=== PATIENT | female | born 1940 | race African-American/Black ===

== ENCOUNTER 2019-10-01 14:54 | Inpatient (IN) | payer MEDICARE, MEDICAID ==
[~2019-10-01] VITALS: Ht 162.6 cm; Wt 100.9 kg
[2019-10-01] MEDS ORDERED: ACETAMINOPHEN 325MG TABLET PO STA (15:41)
[2019-10-01] MEDS ORDERED: VANCOMYCIN 1 G PREMIX 200 ML IV ONE (15:45)
[2019-10-01] MEDS ORDERED: SODIUM CHLORIDE 0.9% 1000ML BAG (SEPSIS BOLUS) IV ONE (15:45)
[2019-10-01] MEDS ORDERED: PIPERACILLIN/TAZ 3.375G PREMIX 50 ML IV ONE (15:45)
[2019-10-01 16:35] LABS: CHLORIDE 106 mEq/L (98-107)
[2019-10-01 16:38] LABS: PROTHROMBIN TIME 11.3 sec (9.6-11.0)
[2019-10-01 16:39] LABS: ETHANOL BLOOD < 10 mg/dL
[2019-10-01 17:02] LABS: CLARITY URINE CLOUDY (CLEAR); COLOR URINE YELLOW (YELLOW); KETONES URINE NEGATIVE (NEGATIVE); LEUKOCYTE ESTERASE URINE 2+ (NEGATIVE); NITRITE URINE NEGATIVE (NEGATIVE); OCCULT BLOOD URINE 3+ (NEGATIVE); PH URINE 7.5 (4.5-8.0); PROTEIN URINE 2+ (NEGATIVE); SPECIFIC GRAVITY URINE 1.013 (1.005-1.030)
[2019-10-01 17:14] LABS: *AMPHETAMINES SCREEN URINE NEGATIVE (NEGATIVE)
[2019-10-01 17:15] LABS: *BARBITURATES SCREEN URINE NEGATIVE (NEGATIVE); *BENZODIAZEPINES SCREEN URINE NEGATIVE (NEGATIVE); *COCAINE SCREEN URINE NEGATIVE (NEGATIVE); METHADONE URINE SCREEN NEGATIVE (NEGATIVE); OPIATES URINE SCREEN NEGATIVE (NEGATIVE); PHENCYCLIDINE URINE SCREEN NEGATIVE (NEGATIVE)
[2019-10-01 17:16] LABS: CANNABINOID URINE SCREEN NEGATIVE (NEGATIVE)
[2019-10-01 17:44] LABS: HEMATOCRIT. 31.4 % (36.0-48.0); HEMOGLOBIN. 10.8 g/dL (12.0-16.0); MEAN CORPUSCULAR HEMOGLOBIN 24.2 pg (28.0-32.0); MEAN CORPUSCULAR VOLUME 70.2 fL (81.0-99.0); MEAN PLATELET VOLUME 8.6 fl (7.4-10.4); PLATELET 202 x1000/uL (130-400); RED BLOOD CELL COUNT 4.47 mill/uL (4.2-5.4); RED CELL DISTRIBUTION WIDTH 18.5 % (11.6-14.6)
[2019-10-01 18:20] LABS: PLATELET ESTIMATE NORMAL
[2019-10-01] MEDS ORDERED: ACETAMINOPHEN 650MG SUPP PR PRN ×2 (22:15)
[2019-10-01] MEDS ORDERED: GUAIFENESIN 200MG/10ML SUGAR FREE UDC PO PRN (22:15)
[2019-10-01] MEDS ORDERED: CEFTRIAXONE 1 G PREMIX 50 ML IV NR (22:30)
[2019-10-01] MEDS ORDERED: AZITHROMYCIN 500 MG in DEXT 5% WATER 250 ML IV NR (23:30)
[2019-10-02] MEDS: ACETAMINOPHEN 650MG/20.3ML UDC GT PRN (03:52)
[2019-10-02 06:13] LABS: CHLORIDE 107 mEq/L (98-107)
[2019-10-02 06:16] LABS: HEMOGLOBIN. 10.3 g/dL (12.0-16.0); MEAN CORPUSCULAR HEMOGLOBIN 24.5 pg (28.0-32.0); MEAN CORPUSCULAR VOLUME 71.3 fL (81.0-99.0); MEAN PLATELET VOLUME 8.6 fl (7.4-10.4); PLATELET 184 x1000/uL (130-400); RED BLOOD CELL COUNT 4.21 mill/uL (4.2-5.4); RED CELL DISTRIBUTION WIDTH 18.5 % (11.6-14.6)
[2019-10-02 06:20] LABS: HDL CHOLESTEROL 53 mg/dL (40-59)
[2019-10-02 06:23] LABS: LDL CHOLESTEROL 64 mg/dL (5-100)
[2019-10-02 07:16] LABS: PLATELET ESTIMATE NORMAL
[2019-10-02 08:30] VITALS: BP 171/90
[2019-10-02] MEDS ORDERED: VANCOMYCIN 1,000 MG in DEXT 5% WATER 250 ML IV SCH (10:00)
[2019-10-02] MEDS: ENOXAPARIN 30MG/0.3ML SYR SUBCUT SCH (10:33)
[2019-10-02 10:57] LABS: BG BASE EXCESS 3.7 mmol/L (-2.0-2.0); BG CARBOXYHEMOGLOBIN 0.3 % (0.5-1.5); BG DEOXYHEMOGLOBIN 4.2 % (0.0-5.0); BG FRACTION INSPIRED OXYGEN 21; BG HCO3 ACT 28.2 mmol/L (22.0-26.0); BG METHEMOGLOBIN 0.3 % (0.0-1.5); BG OXYGEN SATURATION 95.8 % (92.0-98.5); BG OXYHEMOGLOBIN 95.2 % (94.0-97.0); BG PCO2 42.6 mmHg (35.0-45.0); BG PH 7.439 (7.350-7.450); BG PO2 78.9 mmHg (75.0-100.0); BG SAMPLE SITE RIGHT RADIAL; BG TOTAL HEMOGLOBIN 10.5 g/dL (12.0-18.0); BG VENT MODE ROOM AIR
[2019-10-02 12:00] VITALS: BP 178/86
[2019-10-02] MEDS ORDERED: BENZONATATE 100MG CAPSULE PO PRN ×2 (13:15→16:30)
[2019-10-02] MEDS ORDERED: GUAIFENESIN-DM 200MG-20MG/10ML UDC PO PRN (13:30)
[2019-10-02] MEDS: GUAIFENESIN-DM 200MG-20MG/10ML UDC PO PRN (14:03)
[2019-10-02] MEDS ORDERED: ATOR20TA65 PO (14:33)
[2019-10-02] MEDS ORDERED: LOSA100T3 PO (14:33)
[2019-10-02] MEDS ORDERED: HYDR-4135 PO (14:33)
[2019-10-02] MEDS ORDERED: MINO2.5T2 PO (14:33)
[2019-10-02] MEDS: SODIUM CHLORIDE 0.9% INJ 3ML FLUSH IVF SCH ×3 (14:54→21:39)
[2019-10-02 16:00] VITALS: BP 208/84
[2019-10-02] MEDS ORDERED: POTASSIUM CHLORIDE 20MEQ TABLET SR PO NR (16:00)
[2019-10-02 20:00] VITALS: BP 181/83
[2019-10-02] MEDS: HYDRALAZINE HCL 50MG TABLET PO SCH (21:16)
[2019-10-02] MEDS: GUAIFENESIN 600MG ER TABLET PO SCH (21:17)
[2019-10-02] MEDS: ATORVASTATIN CALCIUM 20MG TABLET PO SCH (21:17)
[2019-10-02] MEDS: MINOXIDIL 2.5MG TABLET PO SCH (21:22)
[2019-10-02] MEDS ORDERED: AZITHROMYCIN 500 MG in DEXT 5% WATER 250 ML IV SCH (22:00)
[2019-10-02] MEDS: CEFTRIAXONE 1 G PREMIX 50 ML IV SCH (23:06)
[2019-10-02 23:41] VITALS: BP 174/72
[2019-10-03 04:00] VITALS: BP 180/81
[2019-10-03] MEDS: SODIUM CHLORIDE 0.9% INJ 3ML FLUSH IVF SCH ×3 (05:01→21:38)
[2019-10-03] MEDS: HYDRALAZINE HCL 50MG TABLET PO SCH ×3 (05:01→21:39)
[2019-10-03 06:00] VITALS: BP 170/92
[2019-10-03] MEDS ORDERED: VANCOMYCIN HCL 750 MG in DEXT 5% WATER 250 ML IV SCH (06:00)
[2019-10-03 08:00] VITALS: BP 170/63
[2019-10-03] MEDS ORDERED: ENOXAPARIN 40MG/0.4ML SYR SUBCUT SCH (09:00)
[2019-10-03] MEDS: HYDROXYCHLOROQUINE SULFATE 200MG TABLET PO SCH ×2 (09:01→16:28)
[2019-10-03] MEDS: ZINC SULFATE 220 MG ( 50 ) CAPSULE PO SCH (09:01)
[2019-10-03] MEDS: ASCORBIC ACID 500 MG TABLET PO SCH ×2 (09:01→20:53)
[2019-10-03] MEDS: LOSARTAN POTASSIUM 100 MG TABLET PO SCH (09:01)
[2019-10-03] MEDS: ENOXAPARIN 30MG/0.3ML SYR SUBCUT SCH (09:01)
[2019-10-03] MEDS: MINOXIDIL 2.5MG TABLET PO SCH ×2 (09:02→20:54)
[2019-10-03] MEDS: GUAIFENESIN 600MG ER TABLET PO SCH ×2 (09:02→20:53)
[2019-10-03] MEDS: GUAIFENESIN-DM 200MG-20MG/10ML UDC PO PRN (09:10)
[2019-10-03 12:00] VITALS: BP 183/76
[2019-10-03] MEDS ORDERED: CLONIDINE 0.1MG TABLET PO PRN (12:45)
[2019-10-03] MEDS: ACETAMINOPHEN 650MG/20.3ML UDC GT PRN (13:42)
[2019-10-03 16:00] VITALS: BP 165/83
[2019-10-03] MEDS: GLYBURIDE 5MG TABLET PO SCH (16:28)
[2019-10-03] MEDS ORDERED: GLYBURIDE 5MG TABLET PO SCH (16:40)
[2019-10-03 20:00] VITALS: BP 158/72
[2019-10-03] MEDS ORDERED: CEFTRIAXONE 1 G PREMIX 50 ML IV SCH (20:00)
[2019-10-03] MEDS: ATORVASTATIN CALCIUM 20MG TABLET PO SCH (20:53)
[2019-10-03] MEDS ORDERED: AZITHROMYCIN 500 MG in DEXT 5% WATER 250 ML IV SCH (21:00)
[2019-10-03] MEDS ORDERED: POTASSIUM CHLORIDE 20MEQ TABLET SR PO NR (22:30)
[2019-10-04] VITALS (8 sets, daily range): BP systolic 114–175; BP diastolic 63–80
[2019-10-04] MEDS: CEFTRIAXONE 1 G PREMIX 50 ML IV SCH (00:57)
[2019-10-04] MEDS: SODIUM CHLORIDE 0.9% INJ 3ML FLUSH IVF SCH ×3 (05:11→21:44)
[2019-10-04] MEDS: GLYBURIDE 5MG TABLET PO SCH ×2 (05:40→17:13)
[2019-10-04] MEDS: HYDRALAZINE HCL 50MG TABLET PO SCH ×3 (05:41→23:40)
[2019-10-04 06:18] LABS: BASOPHILS % 0.7 % (0.0-2.0); EOSINOPHILS % 0.2 % (0.0-5.0); HEMATOCRIT. 33.2 % (36.0-48.0); HEMOGLOBIN. 11.3 g/dL (12.0-16.0); LYMPHOCYTES % 14.1 % (20.0-50.0); MEAN CORPUSCULAR HEMOGLOBIN 24.4 pg (28.0-32.0); MEAN CORPUSCULAR VOLUME 71.4 fL (81.0-99.0); MEAN PLATELET VOLUME 8.7 fl (7.4-10.4); MONOCYTES % 14.6 % (2.0-8.0); NEUTROPHILS % 70.4 % (40.0-76.0); PLATELET 228 x1000/uL (130-400); RED BLOOD CELL COUNT 4.64 mill/uL (4.2-5.4)
[2019-10-04 07:48] LABS: CHLORIDE 107 mEq/L (98-107)
[2019-10-04] MEDS: ZINC SULFATE 220 MG ( 50 ) CAPSULE PO SCH (09:22)
[2019-10-04] MEDS: ASCORBIC ACID 500 MG TABLET PO SCH ×2 (09:22→20:47)
[2019-10-04] MEDS: MINOXIDIL 2.5MG TABLET PO SCH ×2 (09:22→21:44)
[2019-10-04] MEDS: LOSARTAN POTASSIUM 100 MG TABLET PO SCH (09:22)
[2019-10-04] MEDS: ENOXAPARIN 40MG/0.4ML SYR SUBCUT SCH (09:22)
[2019-10-04] MEDS: HYDROXYCHLOROQUINE SULFATE 200MG TABLET PO SCH ×2 (09:22→17:13)
[2019-10-04] MEDS: GUAIFENESIN 600MG ER TABLET PO SCH ×2 (09:24→20:47)
[2019-10-04] MEDS ORDERED: POTASSIUM CHLORIDE 20MEQ TABLET SR PO NR (14:00)
[2019-10-04] MEDS: ACETAMINOPHEN 650MG/20.3ML UDC GT PRN (17:34)
[2019-10-04] MEDS: ATORVASTATIN CALCIUM 20MG TABLET PO SCH (20:47)
[2019-10-04] MEDS ORDERED: AZITHROMYCIN 500 MG TABLET PO SCH (21:00)
[2019-10-05] MEDS: ACETAMINOPHEN 650MG/20.3ML UDC GT PRN (00:02)
[2019-10-05] MEDS: CEFTRIAXONE 2 G in DEXTROSE 5% WATER 50 ML IV SCH (01:30)
[2019-10-05 04:00] VITALS: BP 146/70
[2019-10-05] MEDS: SODIUM CHLORIDE 0.9% INJ 3ML FLUSH IVF SCH ×3 (07:13→22:16)
[2019-10-05] MEDS: HYDRALAZINE HCL 50MG TABLET PO SCH ×3 (07:13→21:55)
[2019-10-05] MEDS: ACETAMINOPHEN 650MG/20.3ML UDC PO PRN ×2 (07:27→22:02)
[2019-10-05] MEDS: GLYBURIDE 5MG TABLET PO SCH ×2 (07:34→17:55)
[2019-10-05 08:00] VITALS: BP 142/63
[2019-10-05] MEDS: MINOXIDIL 2.5MG TABLET PO SCH ×2 (10:03→21:55)
[2019-10-05] MEDS: ASCORBIC ACID 500 MG TABLET PO SCH ×2 (10:03→21:54)
[2019-10-05] MEDS: HYDROXYCHLOROQUINE SULFATE 200MG TABLET PO SCH ×2 (10:03→20:01)
[2019-10-05] MEDS: ZINC SULFATE 220 MG ( 50 ) CAPSULE PO SCH (10:03)
[2019-10-05] MEDS: LOSARTAN POTASSIUM 100 MG TABLET PO SCH (10:03)
[2019-10-05] MEDS: ENOXAPARIN 40MG/0.4ML SYR SUBCUT SCH (10:10)
[2019-10-05] MEDS: GUAIFENESIN-DM 200MG-20MG/10ML UDC PO PRN (10:10)
[2019-10-05] MEDS: GUAIFENESIN 600MG ER TABLET PO SCH ×2 (10:14→21:54)
[2019-10-05 12:00] VITALS: BP 155/70
[2019-10-05 12:16] LABS: BG BASE EXCESS 0.2 mmol/L (-2.0-2.0); BG CARBOXYHEMOGLOBIN 0.1 % (0.5-1.5); BG DEOXYHEMOGLOBIN 6.9 % (0.0-5.0); BG FRACTION INSPIRED OXYGEN 21; BG HCO3 ACT 25.1 mmol/L (22.0-26.0); BG METHEMOGLOBIN 0.3 % (0.0-1.5); BG OXYGEN SATURATION 93.1 % (92.0-98.5); BG OXYHEMOGLOBIN 92.7 % (94.0-97.0); BG PCO2 41.6 mmHg (35.0-45.0); BG PH 7.399 (7.350-7.450); BG PO2 69.9 mmHg (75.0-100.0); BG SAMPLE SITE RIGHT RADIAL; BG TOTAL HEMOGLOBIN 13.2 g/dL (12.0-18.0); BG VENT MODE ROOM AIR
[2019-10-05] MEDS ORDERED: POTASSIUM CHLORIDE 20MEQ TABLET SR PO SCH (14:00)
[2019-10-05 16:00] VITALS: BP 154/75
[2019-10-05] MEDS ORDERED: INSULIN GLARGINE UD 100 UNITS/ML SYR SUBCUT NR (17:00)
[2019-10-05 20:00] VITALS: BP 149/77
[2019-10-05] MEDS: FAMOTIDINE 20MG TABLET PO SCH (21:54)
[2019-10-05] MEDS: ATORVASTATIN CALCIUM 20MG TABLET PO SCH (21:54)
[2019-10-06] VITALS: BP 149/81
[2019-10-06] MEDS: CEFTRIAXONE 2 G in DEXTROSE 5% WATER 50 ML IV SCH (00:40)
[2019-10-06 04:00] VITALS: BP 144/72
[2019-10-06] MEDS: HYDRALAZINE HCL 50MG TABLET PO SCH ×3 (05:46→21:34)
[2019-10-06] MEDS: SODIUM CHLORIDE 0.9% INJ 3ML FLUSH IVF SCH ×3 (05:46→21:37)
[2019-10-06] MEDS: GLYBURIDE 5MG TABLET PO SCH ×2 (06:24→17:10)
[2019-10-06 08:00] VITALS: BP 149/68
[2019-10-06] MEDS: ENOXAPARIN 40MG/0.4ML SYR SUBCUT SCH (08:56)
[2019-10-06] MEDS: ZINC SULFATE 220 MG ( 50 ) CAPSULE PO SCH (08:56)
[2019-10-06] MEDS: LOSARTAN POTASSIUM 100 MG TABLET PO SCH (08:56)
[2019-10-06] MEDS: HYDROXYCHLOROQUINE SULFATE 200MG TABLET PO SCH ×2 (08:56→17:10)
[2019-10-06] MEDS: ASCORBIC ACID 500 MG TABLET PO SCH ×2 (08:56→21:34)
[2019-10-06] MEDS: MINOXIDIL 2.5MG TABLET PO SCH ×2 (08:56→21:34)
[2019-10-06] MEDS: GUAIFENESIN 600MG ER TABLET PO SCH ×2 (08:56→21:37)
[2019-10-06 09:40] LABS: BASOPHILS % 0.6 % (0.0-2.0); CHLORIDE 106 mEq/L (98-107); EOSINOPHILS % 0.1 % (0.0-5.0); HEMATOCRIT. 31.7 % (36.0-48.0); HEMOGLOBIN. 10.8 g/dL (12.0-16.0); MEAN CORPUSCULAR HEMOGLOBIN 24.5 pg (28.0-32.0); MEAN CORPUSCULAR VOLUME 71.8 fL (81.0-99.0); MONOCYTES % 9.8 % (2.0-8.0); NEUTROPHILS % 69.5 % (40.0-76.0); PLATELET 250 x1000/uL (130-400); RED BLOOD CELL COUNT 4.42 mill/uL (4.2-5.4); RED CELL DISTRIBUTION WIDTH 18.4 % (11.6-14.6)
[2019-10-06] MEDS ORDERED: INSULIN GLARGINE UD 100 UNITS/ML SYR SUBCUT SCH (10:00)
[2019-10-06 12:00] VITALS: BP 161/67
[2019-10-06 16:00] VITALS: BP 148/63
[2019-10-06 20:00] VITALS: BP 174/52
[2019-10-06] MEDS: GUAIFENESIN-DM 200MG-20MG/10ML UDC PO PRN (21:33)
[2019-10-06] MEDS: FAMOTIDINE 20MG TABLET PO SCH (21:33)
[2019-10-06] MEDS: ATORVASTATIN CALCIUM 20MG TABLET PO SCH (21:34)
[2019-10-07] MEDS: INSULIN GLARGINE UD 100 UNITS/ML SYR SUBCUT SCH ×3 (00:05→22:18)
[2019-10-07] MEDS: ACETAMINOPHEN 650MG/20.3ML UDC PO PRN ×2 (00:13→22:17)
[2019-10-07] MEDS: CEFTRIAXONE 2 G in DEXTROSE 5% WATER 50 ML IV SCH (00:14)
[2019-10-07 00:26] VITALS: BP 147/63
[2019-10-07 04:00] VITALS: BP 154/77
[2019-10-07] MEDS: HYDRALAZINE HCL 50MG TABLET PO SCH ×3 (06:50→22:16)
[2019-10-07] MEDS: GLYBURIDE 5MG TABLET PO SCH ×2 (06:50→17:59)
[2019-10-07] MEDS: SODIUM CHLORIDE 0.9% INJ 3ML FLUSH IVF SCH ×2 (06:51→14:00)
[2019-10-07 08:00] VITALS: BP 151/67
[2019-10-07] MEDS: HYDROXYCHLOROQUINE SULFATE 200MG TABLET PO SCH ×2 (09:52→17:59)
[2019-10-07] MEDS: ZINC SULFATE 220 MG ( 50 ) CAPSULE PO SCH (09:52)
[2019-10-07] MEDS: LOSARTAN POTASSIUM 100 MG TABLET PO SCH (09:52)
[2019-10-07] MEDS: ENOXAPARIN 40MG/0.4ML SYR SUBCUT SCH (09:53)
[2019-10-07] MEDS: MINOXIDIL 2.5MG TABLET PO SCH ×2 (09:53→22:16)
[2019-10-07] MEDS: ASCORBIC ACID 500 MG TABLET PO SCH ×2 (09:53→22:15)
[2019-10-07] MEDS: GUAIFENESIN 600MG ER TABLET PO SCH ×2 (10:22→22:15)
[2019-10-07 12:00] VITALS: BP 162/77
[2019-10-07] MEDS ORDERED: DEXTROSE 50% WATER 50ML SYRINGE IV PRN (13:15)
[2019-10-07] MEDS: INSULIN LISPRO 100 UNITS/ML SUBCUT SCH ×3 (13:39→22:18)
[2019-10-07 16:00] VITALS: BP 129/53
[2019-10-07] MEDS: BLOOD SUGAR DIAGNOSTIC STRIP TEST SCH ×2 (16:40→21:00)
[2019-10-07 20:00] VITALS: BP_SYST 103; BP_SYST 134; BP_DIAS 49; BP_DIAS 63
[2019-10-07] MEDS: FAMOTIDINE 20MG TABLET PO SCH (22:15)
[2019-10-07] MEDS: ATORVASTATIN CALCIUM 20MG TABLET PO SCH (22:16)
[2019-10-08] VITALS (7 sets, daily range): BP systolic 130–151; BP diastolic 54–76
[2019-10-08] MEDS: CEFTRIAXONE 2 G in DEXTROSE 5% WATER 50 ML IV SCH (01:37)
[2019-10-08] MEDS: GLYBURIDE 5MG TABLET PO SCH ×2 (06:57→18:01)
[2019-10-08] MEDS: HYDRALAZINE HCL 50MG TABLET PO SCH ×3 (06:57→21:22)
[2019-10-08] MEDS: BLOOD SUGAR DIAGNOSTIC STRIP TEST SCH ×4 (07:04→21:22)
[2019-10-08] MEDS: INSULIN LISPRO 100 UNITS/ML SUBCUT SCH ×4 (07:08→21:20)
[2019-10-08] MEDS: SODIUM CHLORIDE 0.9% INJ 3ML FLUSH IVF SCH ×3 (07:13→21:20)
[2019-10-08] MEDS: GUAIFENESIN 600MG ER TABLET PO SCH ×2 (08:22→21:21)
[2019-10-08] MEDS: ZINC SULFATE 220 MG ( 50 ) CAPSULE PO SCH (08:22)
[2019-10-08] MEDS: ENOXAPARIN 40MG/0.4ML SYR SUBCUT SCH (08:22)
[2019-10-08] MEDS: MINOXIDIL 2.5MG TABLET PO SCH ×2 (08:22→21:21)
[2019-10-08] MEDS: LOSARTAN POTASSIUM 100 MG TABLET PO SCH (08:22)
[2019-10-08] MEDS: ASCORBIC ACID 500 MG TABLET PO SCH ×2 (08:22→21:20)
[2019-10-08] MEDS: INSULIN GLARGINE UD 100 UNITS/ML SYR SUBCUT SCH ×2 (10:40→21:20)
[2019-10-08] MEDS ORDERED: LIDOCAINE HCL 1% 20ML VIAL (Pyxis) INJ ONE (14:06)
[2019-10-08] MEDS ORDERED: SODIUM BICARBONATE 4% (2.4MEQ) 5ML VIAL IV ONE (14:06)
[2019-10-08] MEDS: ATORVASTATIN CALCIUM 20MG TABLET PO SCH (21:21)
[2019-10-08] MEDS: FAMOTIDINE 20MG TABLET PO SCH (21:24)
[2019-10-09] VITALS: BP 130/90
[2019-10-09 04:00] VITALS: BP 150/71
[2019-10-09] MEDS: SODIUM CHLORIDE 0.9% INJ 3ML FLUSH IVF SCH ×3 (05:25→21:26)
[2019-10-09] MEDS: HYDRALAZINE HCL 50MG TABLET PO SCH ×3 (05:25→21:24)
[2019-10-09] MEDS: GLYBURIDE 5MG TABLET PO SCH ×2 (06:16→16:40)
[2019-10-09] MEDS: INSULIN LISPRO 100 UNITS/ML SUBCUT SCH ×3 (06:17→21:30)
[2019-10-09] MEDS: BLOOD SUGAR DIAGNOSTIC STRIP TEST SCH ×3 (06:18→21:14)
[2019-10-09 08:00] VITALS: BP 149/55
[2019-10-09] MEDS: GUAIFENESIN 600MG ER TABLET PO SCH ×2 (09:00→21:25)
[2019-10-09] MEDS: ASCORBIC ACID 500 MG TABLET PO SCH ×2 (09:00→21:25)
[2019-10-09] MEDS: ENOXAPARIN 40MG/0.4ML SYR SUBCUT SCH (10:20)
[2019-10-09] MEDS: LOSARTAN POTASSIUM 100 MG TABLET PO SCH (10:21)
[2019-10-09] MEDS: ZINC SULFATE 220 MG ( 50 ) CAPSULE PO SCH (10:21)
[2019-10-09] MEDS: MINOXIDIL 2.5MG TABLET PO SCH ×2 (10:21→21:25)
[2019-10-09] MEDS: INSULIN GLARGINE UD 100 UNITS/ML SYR SUBCUT SCH ×2 (10:25→21:29)
[2019-10-09] MEDS ORDERED: LEVOFLOXACIN 500MG TABLET PO SCH (11:00)
[2019-10-09 12:23] VITALS: BP 155/72
[2019-10-09 20:00] VITALS: BP 155/71
[2019-10-09] MEDS: FAMOTIDINE 20MG TABLET PO SCH (21:25)
[2019-10-09] MEDS: ATORVASTATIN CALCIUM 20MG TABLET PO SCH (21:25)
[2019-10-10] VITALS: BP 161/77
[2019-10-10 04:00] VITALS: BP 104/59
[2019-10-10] MEDS: SODIUM CHLORIDE 0.9% INJ 3ML FLUSH IVF SCH ×3 (05:29→21:35)
[2019-10-10] MEDS: HYDRALAZINE HCL 50MG TABLET PO SCH ×3 (06:00→22:43)
[2019-10-10] MEDS: GLYBURIDE 5MG TABLET PO SCH ×2 (06:43→17:26)
[2019-10-10] MEDS: BLOOD SUGAR DIAGNOSTIC STRIP TEST SCH ×4 (07:08→21:35)
[2019-10-10] MEDS: INSULIN LISPRO 100 UNITS/ML SUBCUT SCH ×4 (07:12→21:43)
[2019-10-10 08:00] VITALS: BP 110/54
[2019-10-10] MEDS: GUAIFENESIN 600MG ER TABLET PO SCH ×2 (08:50→20:22)
[2019-10-10] MEDS: MINOXIDIL 2.5MG TABLET PO SCH ×2 (08:50→21:45)
[2019-10-10] MEDS: LOSARTAN POTASSIUM 100 MG TABLET PO SCH (08:50)
[2019-10-10] MEDS: ASCORBIC ACID 500 MG TABLET PO SCH ×2 (08:50→20:22)
[2019-10-10] MEDS: ZINC SULFATE 220 MG ( 50 ) CAPSULE PO SCH (08:50)
[2019-10-10] MEDS: ACETAMINOPHEN 650MG/20.3ML UDC PO PRN (08:51)
[2019-10-10] MEDS ORDERED: LEVOFLOXACIN 250MG TABLET PO SCH (11:00)
[2019-10-10] MEDS: INSULIN GLARGINE UD 100 UNITS/ML SYR SUBCUT SCH ×2 (11:21→21:43)
[2019-10-10 12:00] VITALS: BP 120/66
[2019-10-10] MEDS: ENOXAPARIN 40MG/0.4ML SYR SUBCUT SCH (13:00)
[2019-10-10] MEDS ORDERED: CEFTRIAXONE 2 G PREMIX 50 ML IV SCH (13:00)
[2019-10-10 16:00] VITALS: BP 115/72
[2019-10-10 20:00] VITALS: BP 134/71
[2019-10-10] MEDS: ATORVASTATIN CALCIUM 20MG TABLET PO SCH (20:22)
[2019-10-10] MEDS: FAMOTIDINE 20MG TABLET PO SCH (20:22)
[2019-10-10] MEDS: CEFTRIAXONE 2 G in DEXTROSE 5% WATER 50 ML IV SCH (21:40)
[2019-10-10 23:22] LABS: HEMOGLOBIN. 11.6 g/dL (12.0-16.0); MEAN CORPUSCULAR HEMOGLOBIN 24.4 pg (28.0-32.0); MEAN CORPUSCULAR VOLUME 71.9 fL (81.0-99.0); MEAN PLATELET VOLUME 9.2 fl (7.4-10.4); PLATELET 329 x1000/uL (130-400); RED BLOOD CELL COUNT 4.73 mill/uL (4.2-5.4); RED CELL DISTRIBUTION WIDTH 18.3 % (11.6-14.6)
[2019-10-11] VITALS: BP 123/59
[2019-10-11 00:15] LABS: PLATELET ESTIMATE NORMAL
[2019-10-11] MEDS: ACETAMINOPHEN 650MG/20.3ML UDC PO PRN (01:29)
[2019-10-11 04:00] VITALS: BP 104/48
[2019-10-11] MEDS: HYDRALAZINE HCL 50MG TABLET PO SCH ×3 (06:00→22:07)
[2019-10-11] MEDS: SODIUM CHLORIDE 0.9% INJ 3ML FLUSH IVF SCH ×3 (06:11→21:22)
[2019-10-11] MEDS: BLOOD SUGAR DIAGNOSTIC STRIP TEST SCH ×4 (06:40→21:50)
[2019-10-11] MEDS: GLYBURIDE 5MG TABLET PO SCH ×2 (06:48→16:19)
[2019-10-11] MEDS: INSULIN LISPRO 100 UNITS/ML SUBCUT SCH ×4 (06:49→21:51)
[2019-10-11 08:00] VITALS: BP 114/57
[2019-10-11] MEDS: ENOXAPARIN 40MG/0.4ML SYR SUBCUT SCH (11:13)
[2019-10-11] MEDS: ZINC SULFATE 220 MG ( 50 ) CAPSULE PO SCH (11:14)
[2019-10-11] MEDS: GUAIFENESIN 600MG ER TABLET PO SCH ×2 (11:14→20:56)
[2019-10-11] MEDS: MINOXIDIL 2.5MG TABLET PO SCH ×2 (11:14→21:21)
[2019-10-11] MEDS: LOSARTAN POTASSIUM 100 MG TABLET PO SCH (11:14)
[2019-10-11] MEDS: ASCORBIC ACID 500 MG TABLET PO SCH ×2 (11:14→20:56)
[2019-10-11] MEDS: INSULIN GLARGINE UD 100 UNITS/ML SYR SUBCUT SCH ×2 (11:20→22:09)
[2019-10-11 12:00] VITALS: BP 135/69
[2019-10-11 12:41] LABS: BASOPHILS % 0.6 % (0.0-2.0); EOSINOPHILS % 0.7 % (0.0-5.0); HEMATOCRIT. 32.8 % (36.0-48.0); HEMOGLOBIN. 11.1 g/dL (12.0-16.0); LYMPHOCYTES % 14.2 % (20.0-50.0); MEAN CORPUSCULAR HEMOGLOBIN 24.1 pg (28.0-32.0); MEAN CORPUSCULAR VOLUME 71.3 fL (81.0-99.0); MEAN PLATELET VOLUME 9.6 fl (7.4-10.4); MONOCYTES % 8.4 % (2.0-8.0); NEUTROPHILS % 76.1 % (40.0-76.0); PLATELET 282 x1000/uL (130-400); RED BLOOD CELL COUNT 4.61 mill/uL (4.2-5.4); RED CELL DISTRIBUTION WIDTH 18.6 % (11.6-14.6)
[2019-10-11 13:06] LABS: CHLORIDE 105 mEq/L (98-107)
[2019-10-11 16:00] VITALS: BP 118/68
[2019-10-11] MEDS: SODIUM CHLORIDE 0.45% 1,000 ML IV SCH (16:19)
[2019-10-11] MEDS: CEFTRIAXONE 2 G in DEXTROSE 5% WATER 50 ML IV SCH (16:19)
[2019-10-11 20:00] VITALS: BP 120/73
[2019-10-11] MEDS: FAMOTIDINE 20MG TABLET PO SCH (20:56)
[2019-10-11] MEDS: ATORVASTATIN CALCIUM 20MG TABLET PO SCH (20:56)
[2019-10-12] VITALS: BP 125/66
[2019-10-12 04:00] VITALS: BP 117/60
[2019-10-12] MEDS: SODIUM CHLORIDE 0.9% INJ 3ML FLUSH IVF SCH ×3 (05:19→22:49)
[2019-10-12] MEDS: HYDRALAZINE HCL 50MG TABLET PO SCH ×3 (05:46→22:59)
[2019-10-12] MEDS: GLYBURIDE 5MG TABLET PO SCH ×2 (05:46→16:14)
[2019-10-12] MEDS: BLOOD SUGAR DIAGNOSTIC STRIP TEST SCH ×4 (06:02→21:22)
[2019-10-12] MEDS: INSULIN LISPRO 100 UNITS/ML SUBCUT SCH ×4 (06:13→22:50)
[2019-10-12 08:00] VITALS: BP 108/60
[2019-10-12] MEDS: MINOXIDIL 2.5MG TABLET PO SCH ×2 (09:00→22:59)
[2019-10-12] MEDS: LOSARTAN POTASSIUM 100 MG TABLET PO SCH (09:00)
[2019-10-12] MEDS: ASCORBIC ACID 500 MG TABLET PO SCH ×2 (09:14→22:59)
[2019-10-12] MEDS: GUAIFENESIN 600MG ER TABLET PO SCH ×2 (09:14→22:59)
[2019-10-12] MEDS: ENOXAPARIN 40MG/0.4ML SYR SUBCUT SCH (09:14)
[2019-10-12] MEDS: ZINC SULFATE 220 MG ( 50 ) CAPSULE PO SCH (09:14)
[2019-10-12 10:18] LABS: HEMATOCRIT. 31.9 % (36.0-48.0); HEMOGLOBIN. 10.9 g/dL (12.0-16.0); MEAN CORPUSCULAR HEMOGLOBIN 24.2 pg (28.0-32.0); MEAN CORPUSCULAR VOLUME 70.9 fL (81.0-99.0); PLATELET 307 x1000/uL (130-400); RED CELL DISTRIBUTION WIDTH 18.2 % (11.6-14.6)
[2019-10-12 10:26] LABS: CHLORIDE 105 mEq/L (98-107)
[2019-10-12] MEDS: INSULIN GLARGINE UD 100 UNITS/ML SYR SUBCUT SCH ×2 (10:47→22:48)
[2019-10-12 12:05] VITALS: BP 108/63
[2019-10-12] MEDS ORDERED: POTASSIUM CHLORIDE INJ 40 MEQ in DEXT 5% WATER 250 ML IV ONE (13:00)
[2019-10-12 14:22] LABS: ATYPICAL LYMPHOCYTES 2
[2019-10-12 14:23] LABS: PLATELET ESTIMATE NORMAL
[2019-10-12 16:00] VITALS: BP 142/73
[2019-10-12] MEDS: SODIUM CHLORIDE 0.45% 1,000 ML IV SCH (16:00)
[2019-10-12 20:00] VITALS: BP 151/74
[2019-10-12] MEDS: ATORVASTATIN CALCIUM 20MG TABLET PO SCH (22:59)
[2019-10-12] MEDS: FAMOTIDINE 20MG TABLET PO SCH (23:00)
[2019-10-12] MEDS: CEFTRIAXONE 2 G in DEXTROSE 5% WATER 50 ML IV SCH (23:05)
[2019-10-13] VITALS: BP 132/66
[2019-10-13 04:00] VITALS: BP 146/63
[2019-10-13] MEDS: HYDRALAZINE HCL 50MG TABLET PO SCH ×3 (06:32→22:30)
[2019-10-13] MEDS: SODIUM CHLORIDE 0.9% INJ 3ML FLUSH IVF SCH ×3 (06:32→22:00)
[2019-10-13] MEDS: GLYBURIDE 5MG TABLET PO SCH ×2 (06:32→17:12)
[2019-10-13] MEDS: BLOOD SUGAR DIAGNOSTIC STRIP TEST SCH ×4 (06:33→21:00)
[2019-10-13] MEDS: INSULIN LISPRO 100 UNITS/ML SUBCUT SCH ×4 (06:53→22:28)
[2019-10-13 08:00] VITALS: BP 129/57
[2019-10-13] MEDS: MINOXIDIL 2.5MG TABLET PO SCH ×2 (09:44→20:39)
[2019-10-13] MEDS: ASCORBIC ACID 500 MG TABLET PO SCH ×2 (09:44→20:39)
[2019-10-13] MEDS: ENOXAPARIN 40MG/0.4ML SYR SUBCUT SCH (09:44)
[2019-10-13] MEDS: ZINC SULFATE 220 MG ( 50 ) CAPSULE PO SCH (09:44)
[2019-10-13 10:52] LABS: BASOPHILS % 1.5 % (0.0-2.0); EOSINOPHILS % 2.7 % (0.0-5.0); HEMATOCRIT. 30.9 % (36.0-48.0); HEMOGLOBIN. 10.5 g/dL (12.0-16.0); LYMPHOCYTES % 16.4 % (20.0-50.0); MEAN CORPUSCULAR HEMOGLOBIN 24.4 pg (28.0-32.0); MEAN CORPUSCULAR VOLUME 71.4 fL (81.0-99.0); MEAN PLATELET VOLUME 9.7 fl (7.4-10.4); MONOCYTES % 10.4 % (2.0-8.0); PLATELET 361 x1000/uL (130-400); RED BLOOD CELL COUNT 4.32 mill/uL (4.2-5.4); RED CELL DISTRIBUTION WIDTH 17.8 % (11.6-14.6)
[2019-10-13] MEDS: INSULIN GLARGINE UD 100 UNITS/ML SYR SUBCUT SCH ×2 (10:55→22:29)
[2019-10-13] MEDS: GUAIFENESIN 600MG ER TABLET PO SCH ×2 (10:57→20:39)
[2019-10-13 10:58] LABS: CHLORIDE 108 mEq/L (98-107)
[2019-10-13 12:00] VITALS: BP 141/70
[2019-10-13] MEDS: ACETAMINOPHEN 650MG/20.3ML UDC GT PRN (12:55)
[2019-10-13 16:00] VITALS: BP 137/69
[2019-10-13] MEDS ORDERED: POTASSIUM CHLORIDE 20MEQ TABLET SR PO NR (18:00)
[2019-10-13 20:00] VITALS: BP 129/51
[2019-10-13] MEDS: CEFTRIAXONE 2 G in DEXTROSE 5% WATER 50 ML IV SCH (20:38)
[2019-10-13] MEDS: ATORVASTATIN CALCIUM 20MG TABLET PO SCH (20:39)
[2019-10-13] MEDS: FAMOTIDINE 20MG TABLET PO SCH (20:42)
[2019-10-14] VITALS: BP 108/46
[2019-10-14 04:00] VITALS: BP 117/46
[2019-10-14] MEDS: HYDRALAZINE HCL 50MG TABLET PO SCH ×3 (06:00→21:45)
[2019-10-14] MEDS: SODIUM CHLORIDE 0.9% INJ 3ML FLUSH IVF SCH ×3 (07:11→21:46)
[2019-10-14] MEDS: GLYBURIDE 5MG TABLET PO SCH ×2 (07:11→18:16)
[2019-10-14] MEDS: INSULIN LISPRO 100 UNITS/ML SUBCUT SCH ×4 (07:12→21:48)
[2019-10-14] MEDS: BLOOD SUGAR DIAGNOSTIC STRIP TEST SCH ×4 (07:12→21:28)
[2019-10-14 08:00] VITALS: BP 135/61
[2019-10-14] MEDS: GUAIFENESIN 600MG ER TABLET PO SCH ×2 (10:03→21:45)
[2019-10-14] MEDS: ASCORBIC ACID 500 MG TABLET PO SCH ×2 (10:03→21:45)
[2019-10-14] MEDS: ZINC SULFATE 220 MG ( 50 ) CAPSULE PO SCH (10:03)
[2019-10-14] MEDS: MINOXIDIL 2.5MG TABLET PO SCH ×2 (10:03→21:46)
[2019-10-14] MEDS: INSULIN GLARGINE UD 100 UNITS/ML SYR SUBCUT SCH ×2 (10:19→22:42)
[2019-10-14 12:00] VITALS: BP 162/70
[2019-10-14] MEDS: ENOXAPARIN 40MG/0.4ML SYR SUBCUT SCH (13:37)
[2019-10-14 13:42] LABS: BASOPHILS % 1.6 % (0.0-2.0); EOSINOPHILS % 2.1 % (0.0-5.0); HEMATOCRIT. 30.9 % (36.0-48.0); HEMOGLOBIN. 10.5 g/dL (12.0-16.0); LYMPHOCYTES % 18.1 % (20.0-50.0); MEAN CORPUSCULAR HEMOGLOBIN 24.4 pg (28.0-32.0); MEAN CORPUSCULAR VOLUME 71.5 fL (81.0-99.0); MEAN PLATELET VOLUME 9.8 fl (7.4-10.4); MONOCYTES % 12.7 % (2.0-8.0); NEUTROPHILS % 65.5 % (40.0-76.0); PLATELET 425 x1000/uL (130-400); RED BLOOD CELL COUNT 4.32 mill/uL (4.2-5.4); RED CELL DISTRIBUTION WIDTH 17.8 % (11.6-14.6)
[2019-10-14 13:46] LABS: CHLORIDE 110 mEq/L (98-107)
[2019-10-14] MEDS ORDERED: POTASSIUM CHLORIDE 20MEQ TABLET SR PO NR (14:15)
[2019-10-14 16:00] VITALS: BP 117/52
[2019-10-14] MEDS: SODIUM CHLORIDE 0.45% 1,000 ML IV SCH (16:00)
[2019-10-14] MEDS ORDERED: ALBU90AE INH (16:47)
[2019-10-14] MEDS ORDERED: LEVO500T2 PO (16:47)
[2019-10-14 20:00] VITALS: BP 121/59
[2019-10-14] MEDS: FAMOTIDINE 20MG TABLET PO SCH (21:45)
[2019-10-14] MEDS: ATORVASTATIN CALCIUM 20MG TABLET PO SCH (21:46)
[2019-10-15] VITALS: BP 112/56
[2019-10-15 04:00] VITALS: BP 115/64
[2019-10-15] MEDS: HYDRALAZINE HCL 50MG TABLET PO SCH ×2 (06:00→13:32)
[2019-10-15] MEDS: BLOOD SUGAR DIAGNOSTIC STRIP TEST SCH ×3 (06:09→16:40)
[2019-10-15] MEDS: INSULIN LISPRO 100 UNITS/ML SUBCUT SCH ×3 (06:10→18:20)
[2019-10-15] MEDS: SODIUM CHLORIDE 0.9% INJ 3ML FLUSH IVF SCH ×2 (06:10→13:42)
[2019-10-15 08:00] VITALS: BP 136/58
[2019-10-15] MEDS: ZINC SULFATE 220 MG ( 50 ) CAPSULE PO SCH (09:21)
[2019-10-15] MEDS: ENOXAPARIN 40MG/0.4ML SYR SUBCUT SCH (09:22)
[2019-10-15] MEDS: ASCORBIC ACID 500 MG TABLET PO SCH (09:22)
[2019-10-15] MEDS: GLYBURIDE 5MG TABLET PO SCH ×2 (09:22→18:18)
[2019-10-15] MEDS: GUAIFENESIN 600MG ER TABLET PO SCH (09:22)
[2019-10-15] MEDS: INSULIN GLARGINE UD 100 UNITS/ML SYR SUBCUT SCH (10:00)
[2019-10-15] MEDS: MINOXIDIL 2.5MG TABLET PO SCH (11:33)
[2019-10-15 12:00] VITALS: BP 146/65
[2019-10-15 15:30] LABS: BASOPHILS % 3.4 % (0.0-2.0); EOSINOPHILS % 2.4 % (0.0-5.0); HEMOGLOBIN. 10.3 g/dL (12.0-16.0); LYMPHOCYTES % 18.9 % (20.0-50.0); MEAN CORPUSCULAR HEMOGLOBIN 24.9 pg (28.0-32.0); MEAN CORPUSCULAR VOLUME 72.6 fL (81.0-99.0); MEAN PLATELET VOLUME 9.5 fl (7.4-10.4); MONOCYTES % 12.6 % (2.0-8.0); NEUTROPHILS % 62.7 % (40.0-76.0); PLATELET 433 x1000/uL (130-400); RED BLOOD CELL COUNT 4.13 mill/uL (4.2-5.4); RED CELL DISTRIBUTION WIDTH 18.3 % (11.6-14.6)
[2019-10-15] MEDS: SODIUM CHLORIDE 0.45% 1,000 ML IV SCH (16:00)
== END 2019-10-15 18:47 | disposition home or self-care (01) | DRG 871 ==
LOC: ER 15:09 → EEVIPCON 20:15 → 7EST 20:15 → EDBEDREQTM 20:29 → EDBEDREQ 20:29 → ENRESERV 10-02 07:27
PROVIDERS: ADMIT Internal Medicine; ATTEND Internal Medicine
PROC: 02H633Z Insertion of Infusion Device into Right Atrium, Percutaneous Approach (ICD-10-PCS; principal; 2019-10-09)
DX: A41.89 Other specified sepsis (principal); U07.1 COVID-19; J12.9 Viral pneumonia, unspecified; N17.9 Acute kidney failure, unspecified; N39.0 Urinary tract infection, site not specified; B96.20 Unspecified Escherichia coli [E. coli] as the cause of diseases classified elsewhere; B96.89 Other specified bacterial agents as the cause of diseases classified elsewhere; E66.9 Obesity, unspecified; E11.22 Type 2 diabetes mellitus with diabetic chronic kidney disease; I13.10 Hypertensive heart and chronic kidney disease without heart failure, with stage 1 through stage 4 chronic kidney disease, or unspecified chronic kidney disease; E78.5 Hyperlipidemia, unspecified; N18.9 Chronic kidney disease, unspecified; D64.9 Anemia, unspecified; E87.6 Hypokalemia; N18.3 Chronic kidney disease, stage 3 (moderate); Z85.43 Personal history of malignant neoplasm of ovary; Z79.4 Long term (current) use of insulin; Z68.38 Body mass index [BMI] 38.0-38.9, adult; Z98.51 Tubal ligation status; Z79.899 Other long term (current) drug therapy
CPT/HCPCS: 36415; 36600; 71045; 76937; 80048; 80053; 80061; 80076; 80305; 80320; 81003; 82375; 82728; 82805; 82962; 83605; 83615; 84145; 84484; 85007; 85025; 85027; 85379; 86140; 86141; 87077; 87186; 87635; 87804; 93005; 99291; C1725; J0456; J0696; J1650; J1815; J2543; J3370; J3480; J3490; J7030; J7060; G0480

== ENCOUNTER 2024-12-17 14:53 | Emergency (ER) | payer MEDICARE, OTHER ==
[~2024-12-17] VITALS: Ht 167.6 cm; Wt 89.0 kg
[~2024-12-17 14:53] MED LIST: ALBU90AE INH; ASPI-1497 PO; ATOR20TA65 PO; BIMA2.5D4 EACHEYE; DORZ10DR8 EACHEYE; EMPA10TA PO; EPINEPHRINE 0.1MG/ML (1:10,000) 10ML SYR ONE; ETOMIDATE 2MG/ML 10ML VIAL IV ONE; HYDR50TA40 PO; LOSA100T33 MT; MINO2.5T2 MT; TOPUD PO
[2024-12-17 15:01] VITALS: BP 113/57; PULSE 157; RESP 30; O2SAT 95
[2024-12-17] MEDS ORDERED: METHYLPREDNISOLONE SOD SUCC 125MG/2ML (ACT-O-VIAL) IV STA (15:04)
[2024-12-17] MEDS ORDERED: MAGNESIUM 2 G PREMIX 50 ML IV STA (15:04)
[2024-12-17] MEDS ORDERED: IPRATROPIUM BROMIDE (0.02%) 0.5MG/2.5ML NEB HHN STA (15:04)
[2024-12-17] MEDS ORDERED: ALBUTEROL (0.083%) 2.5MG/3ML NEB HHN STA (15:04)
[2024-12-17] MEDS ORDERED: PROPOFOL 10MG/ML 100ML 100 ML IV STA (15:12)
[2024-12-17] MEDS ORDERED: NOREPINEPHRINE 8 MG in DEXT 5% WATER 242 ML IV STA (15:12)
[2024-12-17] MEDS ORDERED: NOREPINEPHRINE 8MG/250ML PMX 250ML IV PRN (15:30)
== END 2024-12-17 15:54 ==
LOC: ER 14:53 → EDBEDREQ 15:15 → ER 15:54 → CANBEDREQ 17:21
DX: I46.9 Cardiac arrest, cause unspecified (principal); J96.91 Respiratory failure, unspecified with hypoxia; J44.9 Chronic obstructive pulmonary disease, unspecified; Z79.899 Other long term (current) drug therapy; Z90.710 Acquired absence of both cervix and uterus; Z86.73 Personal history of transient ischemic attack (TIA), and cerebral infarction without residual deficits; I11.0 Hypertensive heart disease with heart failure; E11.9 Type 2 diabetes mellitus without complications
CPT/HCPCS: 99291; 31500; 71045; 82962; J2919; J3490 ×4; J0330; 99292; J3475; J7060